=== PATIENT | female | born 1970 | race Two or more races ===

== ENCOUNTER 2019-12-13 13:11 | Emergency (ER) | payer OTHER, SELFPAY ==
[~2019-12-13] VITALS: Ht 154.9 cm; Wt 73.9 kg
--- NOTE | 2019-12-13 13:52 | NUR ---
pt resting in gurney, NAD, P/W/D, RESP WNL, VSS, friend at BS, given warm blanket for comfort. WCTM.
--- NOTE | 2019-12-13 14:22 | NUR ---
pt resting in gurney, NAD, P/W/D, RESP WNL, VSS, speaking FCS no SOB noted, friend at BS. WCTM.
[2019-12-13 14:55] LABS: ALANINE AMINOTRANSFERASE 23 U/L (12-78); ALBUMIN 3.7 g/dL (3.4-5.0); ANION GAP 6 mmol/L (5-15); CALCIUM 8.7 mg/dL (8.5-10.1); CHLORIDE 109 mmol/L (98-107)
[2019-12-13 14:58] LABS: MD YES
[2019-12-13 15:00] LABS: ALKALINE PHOSPHATASE 96 U/L (45-117); BILIRUBIN,TOTAL 0.6 mg/dL (0.2-1.0); CREATININE 0.46 mg/dL (0.55-1.02); TOTAL PROTEIN 7.8 g/dL (6.4-8.2)
--- NOTE | 2019-12-13 15:06 | NUR ---
Pt resting in [facility], friend at BS, NAD, VSS, P/W/D, RESP WNL. WCTM. Waiting on lab results
[2019-12-13 15:39] LABS: BASOPHILS % (AUTO) 0 % (0-1); EOSINOPHILS # (AUTO) 0.02 x10^3/uL (0-0.4); EOSINOPHILS % (AUTO) 0 % (1-7); LYMPHOCYTES % (AUTO) 22 % (22-44); MEAN CORPUSCULAR HEMOGLOBIN 18.6 pg (27.0-34.8); MEAN PLATELET VOLUME 9.5 fL (7.4-10.4); MONOCYTES # (AUTO) 0.23 x10^3/uL (0.2-0.8); MONOCYTES % (AUTO) 4 % (2-9); NEUTROPHILS # (AUTO) 4.07 x10^3/uL (1.8-6.8); NEUTROPHILS % (AUTO) 74 % (42-75); PLATELET COUNT 411 x10^3/uL (130-400); RED BLOOD COUNT 3.94 x10^6/uL (3.82-5.3); RED CELL DISTRIBUTION WIDTH 18.3 % (9.6-15.2)
[2019-12-13 15:43] LABS: ANISOCYTOSIS 1+; LYMPH#(MANUAL) 1.27 x10^3/uL (1-3.4); LYMPHS% (MANUAL) 23 % (22-44); OVALOCYTES 1+; SEG#(MANUAL) 4.24 x10^3/uL (1.8-6.8); SEGS% (MANUAL) 77 % (42-75)
[2019-12-13 15:44] LABS: <PLATELET ESTIMATE> INCREASED; <PLT MORPHOLOGY> NORMAL PLT MORPH; HYPOCHROMIA 1+; MICROCYTOSIS 1+; SPHEROCYTES 1+
--- NOTE | 2019-12-13 15:47 | NUR ---
Pt resting in [facility], friend at BS, NAD, VSS, P/W/D, RESP WNL. WCTM. Waiting on dispo
[2019-12-13 16:27] VITALS: BP 125/60
--- NOTE | 2019-12-13 16:42 | NUR ---
Patient/friend given discharge instructions and they have confirmed that they understand the instructions. Patient ambulatory with steady gait. NAD, P/W/D, RESP WNL, denies additional questions at this time. Pt educated about labs and results.
== END 2019-12-13 16:43 | disposition home or self-care (01) ==
LOC: ED 16:15
DX: D50.9 Iron deficiency anemia, unspecified (principal); R58 Hemorrhage, not elsewhere classified; N92.0 Excessive and frequent menstruation with regular cycle; R10.11 Right upper quadrant pain; R51 Headache
CPT/HCPCS: 36415; 80053; 84703; 85025; 86850; 86900; 99285

== ENCOUNTER 2020-01-10 11:25 | Outpatient (CLI) | payer OTHER ==
[2020-01-10] MEDS ORDERED: FERR-46 PO (12:26)
[2020-01-10 14:11] LABS: BASOPHILS # (AUTO) 0.03 x10^3/uL (0-0.1); BASOPHILS % (AUTO) 1 % (0-1); EOSINOPHILS # (AUTO) 0.05 x10^3/uL (0-0.4); EOSINOPHILS % (AUTO) 1 % (1-7); LYMPHOCYTES # (AUTO) 1.08 x10^3/uL (1-3.4); LYMPHOCYTES % (AUTO) 18 % (22-44); MD MORPH REVIEW ONLY; MEAN CORPUSCULAR HEMOGLOBIN 19.2 pg (27.0-34.8); MEAN CORPUSCULAR HGB CONC 29.2 g/dL (32.4-35.8); MEAN CORPUSCULAR VOLUME 65.6 fL (80-100); MEAN PLATELET VOLUME 9.1 fL (7.4-10.4); MONOCYTES # (AUTO) 0.26 x10^3/uL (0.2-0.8); MONOCYTES % (AUTO) 4 % (2-9); NEUTROPHILS # (AUTO) 4.73 x10^3/uL (1.8-6.8); NEUTROPHILS % (AUTO) 77 % (42-75); PLATELET COUNT 400 x10^3/uL (130-400); RED BLOOD COUNT 4.25 x10^6/uL (3.82-5.3); RED CELL DISTRIBUTION WIDTH 20.6 % (9.6-15.2)
[2020-01-10 14:12] LABS: ANISOCYTOSIS 1+; HYPOCHROMIA 1+; MICROCYTOSIS 1+; POLYCHROMASIA 1+
[2020-01-10 14:13] LABS: OVALOCYTES 1+
[2020-01-10 14:14] LABS: <PLATELET ESTIMATE> ADEQUATE; LARGE PLATELETS 1+
== END 2020-01-10 23:59 | disposition home or self-care (01) ==
LOC: STAR 11:25
PROVIDERS: ATTEND Obstetrics & Gynecology
DX: Z01.818 Encounter for other preprocedural examination (principal); Z11.59 Encounter for screening for other viral diseases
CPT/HCPCS: 36415; 85025; U0001